=== PATIENT | female | born 1975 | race Two or more races ===

== ENCOUNTER 2016-10-28 21:55 | Observation (INO) | payer BC, MEDICAID ==
[~2016-10-28] VITALS: Ht 152.4 cm; Wt 53.0 kg
[2016-10-28] MEDS ORDERED: ZIPRASIDONE 20 MG INJ IM ONE ×4 (22:43→23:30)
[2016-10-28] MEDS ORDERED: LIDOCAINE 1%, 10ML INFIL ONE (23:00)
[2016-10-28] MEDS ORDERED: LIDOCAINE 1%, 20ML ONE (23:04)
[2016-10-28 23:59] LABS: ASPARTATE AMINO TRANSFERASE 26 U/L (15-37); BLOOD UREA NITROGEN 6 mg/dL (7-18)
[2016-10-29 00:07] LABS: ACETAMINOPHEN < 2 mcg/mL (10-30)
[2016-10-29] MEDS ORDERED: QUET50TA5 PO (01:05)
[2016-10-29] MEDS ORDERED: PARO30TA3 PO (01:07)
[2016-10-29 02:15] LABS: DAU SCREEN DISCLAIMER
[2016-10-29] MEDS ORDERED: QUETIAPINE 100MG TABLET PO ONE (03:38)
[2016-10-29] MEDS ORDERED: OLANZAPINE 10 MG INJ IM ONE (04:00)
[2016-10-29] MEDS ORDERED: LORazepam 1MG TABLET ONE (04:26)
[2016-10-29] MEDS ORDERED: DIPH,PERTUSS(ACELL),TET VAC/PF 0.5 ML IM-VACC ONE ×2 (05:00→05:28)
[2016-10-29] MEDS: QUETIAPINE 100MG TABLET PO SCH (21:53)
[2016-10-29] MEDS: OLANZAPINE 5 MG TABLET PO PRN (21:53)
[2016-10-30] MEDS: OLANZAPINE 5 MG TABLET PO PRN ×2 (05:02→20:49)
[2016-10-30] MEDS ORDERED: LORazepam 2 MG/ML, 1ML ONE (05:28)
[2016-10-30] MEDS ORDERED: LORazepam 2 MG/ML, 1ML IM ONE (05:30)
[2016-10-30] MEDS ORDERED: LORazepam 1MG TABLET PO PRN (17:00)
[2016-10-30] MEDS ORDERED: ONDANSETRON ODT 4 MG PO PRN (17:00)
[2016-10-30] MEDS ORDERED: DOCUSATE 100 MG CAPSULE PO PRN (17:00)
[2016-10-30 17:59] VITALS: BP 121/84
[2016-10-30] MEDS: QUETIAPINE 25MG TABLET PO SCH ×2 (18:45→21:00)
[2016-10-30] MEDS: ACETAMINOPHEN 325 MG TABLET PO PRN (20:48)
[2016-10-30] MEDS: QUETIAPINE 100MG TABLET PO SCH (20:49)
[2016-10-30 22:09] VITALS: BP 126/83
[2016-10-31 06:12] LABS: BLOOD UREA NITROGEN 10 mg/dL (7-18)
[2016-10-31 08:00] VITALS: BP 121/80
[2016-10-31] MEDS: QUETIAPINE 25MG TABLET PO SCH ×3 (09:31→21:11)
[2016-10-31] MEDS: PAROXETINE 10 MG TABLET PO SCH (09:31)
[2016-10-31] MEDS: ACETAMINOPHEN 325 MG TABLET PO PRN (13:09)
[2016-10-31 19:46] VITALS: BP 125/84
[2016-10-31] MEDS: QUETIAPINE 100MG TABLET PO SCH (21:10)
[2016-11-01 07:54] VITALS: BP 116/82
[2016-11-01] MEDS: QUETIAPINE 25MG TABLET PO SCH (09:00)
[2016-11-01] MEDS: PAROXETINE 10 MG TABLET PO SCH (09:01)
[2016-11-01] MEDS ORDERED: QUETIAPINE 25MG TABLET PO SCH ×2 (14:00→14:30)
[2016-11-01] MEDS ORDERED: QUET200T PO (14:37)
[2016-11-01] MEDS ORDERED: QUET25TA PO (14:37)
[2016-11-01] MEDS ORDERED: QUETIAPINE 200 MG TABLET PO SCH (21:00)
== END 2016-11-01 15:45 ==
LOC: ED 23:31 → EDIP 10-30 16:40 → 3E 10-30 17:55
PROVIDERS: ADMIT Internal Medicine; ATTEND Internal Medicine
DX: F29 Unspecified psychosis not due to a substance or known physiological condition (principal); F31.9 Bipolar disorder, unspecified; F20.9 Schizophrenia, unspecified; F22 Delusional disorders; F41.9 Anxiety disorder, unspecified; Z23 Encounter for immunization
CPT/HCPCS: 36415; 70450; 80048; 80053; 80307; 80329; 81003; 84703; 85025; 90471; 90715; 96372; 99285; G0378; J2060; J3486; J3490; G0480